=== PATIENT | female | born 1975 | race Caucasian/White ===

== ENCOUNTER 2019-07-01 23:22 | Observation (INO) | payer BC ==
--- NOTE | 2019-07-01 23:40 | ERPHSYRPT ---
- History of Present Illness Time Seen by Provider: 07/01/19 23:40 Historian: patient Exam Limitations: no limitations Physician History: 43 yo history of cholecystectomy present in the ER with chief complaint of epigastric/right upper/periumbilical area mild to moderate pain intermittently for the last 2 days until tonight at 7 PM when it became constant dull aching/ burning sharp pain without any significant aggravating or relieving factors, such as the nausea and vomiting times once. Denies any association with specific food. Patient does have a history of hiatal hernia with acid reflux and symptoms are similar to previous episode when she had flareup. She is supposed to take PPI but has not been taking regularly.. Denies any fever or chills. No chest pain palpitations or shortness of breath. Timing/Duration: today Activities at Onset: rest Quality: burning, fullness Abdominal Pain Onset Location: RUQ, epigastric, periumbilical Pain Radiation: no radiation Severity of Pain-Max: moderate Severity of Pain-Current: moderate Modifying Factors: Improves With: nothing Associated Symptoms: nausea, vomiting (x1) Allergies/Adverse Reactions: Sulfa (Sulfonamide Antibiotics) Allergy (Verified 07/01/19 23:42) sulfamethoxazole [From Bactrim] Allergy (Verified 07/01/19 23:42) trimethoprim [From Bactrim] Allergy (Verified 07/01/19 23:42) acetaminophen [From Lortab] Adverse Reaction (Mild, Verified 07/01/19 23:42) hydrocodone bitartrate [From Lortab] Adverse Reaction (Mild, Verified 07/01/19 23:42) hydromorphone HCl [From Dilaudid] Adverse Reaction (Mild, Verified 07/01/19 23: 42) morphine Adverse Reaction (Mild, Verified 07/01/19 23:42) Home Medications: Phentermine HCl [Adipex-P] 37.5 mg PO DAILY 01/12/12 [History] Furosemide 20 mg [Lasix 20 mg] 20 mg PO DAILY 07/01/19 [History] Gabapentin 600 mg PO HS 07/01/19 [History] Levothyroxine Sodium 88 mcg PO DAILY 07/01/19 [History] Potassium Chloride [Klor-Con M10] 10 tab PO DAILY 07/01/19 [History] Hx Tetanus, Diphtheria Vaccination/Date Given: Yes (UNKNOWN) Hx Influenza Vaccination/Date Given: No Hx Pneumococcal Vaccination/Date Given: No - Review of Systems Constitutional: No Symptoms Eyes: No Symptoms Ears, Nose, & Throat: No Symptoms Respiratory: No Symptoms Cardiac: No Symptoms Abdominal/Gastrointestinal: Abdominal Pain, Nausea, Vomiting, Diarrhea Musculoskeletal: No Symptoms Skin: No Symptoms Neurological: No Symptoms Psychological: No Symptoms Endocrine: No Symptoms Hematologic/Lymphatic: No Symptoms Immunological/Allergic: No Symptoms - Past Medical History Pertinent Past Medical History: Yes Neurological History: No Pertinent History ENT History: No Pertinent History Cardiac History: No Pertinent History Respiratory History: No Pertinent History Endocrine Medical History: No Pertinent History Musculoskeletal History: No Pertinent History GI Medical History: GERD History: No Pertinent History Psycho-Social History: Anxiety Female Reproductive Disorders: No Pertinent History - Past Surgical History Past Surgical History: Yes Neuro Surgical History: No Pertinent History Cardiac: No Pertinent History Respiratory: No Pertinent History Gastrointestinal: Cholecystectomy Genitourinary: No Pertinent History Musculoskeletal: No Pertinent History Female Surgical History: Section, Tubal Ligation - Social History Smoking Status: Never smoker Exposure to second hand smoke: Yes Alcohol Use: None Drug Use: none Patient Lives Alone: No Significant Family History: heart disease, hypertension - Nursing Vital Signs Nursing Vital Signs: Initial Vital Signs Temperature 97.6 F 07/01/19 23:26 Pulse Rate 86 07/01/19 23:26 Respiratory Rate 15 07/01/19 23:26 Blood Pressure 144/95 07/01/19 23:26 O2 Sat by Pulse Oximetry 98 07/01/19 23:26 Pain Scale Pain Intensity 8 - Physical Exam General Appearance: no apparent distress Eye Exam: eyes nml inspection Ears, Nose, Throat Exam: normal ENT inspection Neck Exam: normal inspection, non-tender Respiratory Exam: normal breath sounds, lungs clear, No respiratory distress Cardiovascular Exam: regular rate/rhythm, normal heart sounds Gastrointestinal/Abdomen Exam: soft, tenderness (e[pigastric/RUQ/periumbilical area), guarding, No distention Back Exam: normal inspection, normal range of motion, No CVA tenderness Extremity Exam: normal inspection Skin Exam: normal color SpO2 Interpretation: normal O2 Delivery: Room Air - Course Nursing assessment & vital signs reviewed: Yes Ordered Tests: Active Orders 24 hr Category Date Time Status Code Status Order ROUTINE Care 07/02/19 00:03 Active IV Insertion STAT Care 07/01/19 23:57 Active ABDOMEN AND PELVIS W CONTRAST [CT] Stat Exams 07/02/19 00:03 Ordered CMP Stat Lab 07/02/19 00:04 Received UA W/RFX UR CULTURE Stat Lab 07/02/19 00:48 Completed Transfer Order Routine Transfer 07/02/19 Ordered Medication Summary Discontinued Medications Generic Name Dose Route Start Last Admin Trade Name Selena PRN Reason Stop Dose Admin Al Hydrox/Mg Hydrox/Simethicone Confirm 07/02/19 00:18 Maalox Es 30 Ml Unit Dose Administered 07/02/19 00:19 Dose 30 ml .ROUTE .STK-MED ONE Sodium Chloride 1,000 mls @ 999 mls/hr 07/01/19 23:57 07/02/19 03:20 Sodium Chloride 0.9% 1000 Ml IV 07/02/19 00:57 Infused .Q1H1M STA Infusion Sodium Chloride Confirm 07/02/19 00:18 Sodium Chloride 0.9% 1000 Ml Administered 07/02/19 00:19 Dose 1,000 mls @ ud .ROUTE .STK-MED ONE Lidocaine HCl Confirm 07/02/19 00:20 Xylocaine Hcl Viscous * Administered 07/02/19 00:21 Dose 15 ml .ROUTE .STK-MED ONE Magnesium Hydroxide 45 ml 07/01/19 23:57 07/02/19 00:25 Gi Cocktail 45 Ml (Maalox/Lidocaine) PO 07/01/19 23:58 45 ml STAT ONE Administration Ondansetron HCl 4 mg 07/01/19 23:57 07/02/19 00:25 Zofran 4 Mg/2 Ml Vial IV 07/01/19 23:58 4 mg STAT ONE Administration Ondansetron HCl Confirm 07/02/19 00:18 Zofran 4 Mg/2 Ml Vial Administered 07/02/19 00:19 Dose 4 mg .ROUTE .STK-MED ONE Pantoprazole Sodium 40 mg 07/01/19 23:57 07/02/19 00:25 Protonix 40 Mg Iv IV 07/01/19 23:58 40 mg STAT ONE Administration Pantoprazole Sodium Confirm 07/02/19 00:18 Protonix 40 Mg Iv Administered 07/02/19 00:19 Dose 40 mg IV .STK-MED ONE Lab/Rad Data: Laboratory Result Diagrams 07/01/19 00:04 Laboratory Results 07/02/19 07/01/19 Range/Units 00:48 00:04 WBC 14.2 H (4.0-10.5) K/mm3 RBC 4.51 (4.1-5.4) M/mm3 Hgb 13.8 (12.0-16.0) gm/dl Hct 42.0 (35-47) % MCV 93.1 (78-100) fl MCH 30.6 (26-32) pg MCHC 32.9 (32-36) g/dl RDW 12.4 (11.5-14.0) % Plt Count 334 (150-450) K/mm3 MPV 9.9 H (6-9.5) fl Gran % 79.1 H (36.0-66.0) % Eos # (Auto) 0.14 (0-0.5) Absolute Lymphs (auto) 1.97 (1.0-4.6) Absolute Monos (auto) 0.82 (0.0-1.3) Lymphocytes % 13.9 L (24.0-44.0) % Monocytes % 5.8 (0.0-12.0) % Eosinophils % 1.0 (0.00-5.0) % Basophils % 0.2 (0.0-0.4) % Absolute Granulocytes 11.25 H (1.4-6.9) Basophils # 0.03 (0-0.4) Urine Color YELLOW (YELLOW) Urine Appearance SLIGHTLY CLOUDY (CLEAR) Urine pH 5.0 (5-6) Ur Specific [place] 1.027 (1.005-1.025) Urine Protein NEGATIVE (Negative) Urine Ketones NEGATIVE (NEGATIVE) Urine Blood NEGATIVE (0-5) Rishabh/ul Urine Nitrite NEGATIVE (NEGATIVE) Urine Bilirubin NEGATIVE (NEGATIVE) Urine Urobilinogen NEGATIVE (0-1) mg/dL Ur Leukocyte Esterase NEGATIVE (NEGATIVE) Urine WBC (Auto) 0-2 (0-5) /HPF Urine RBC (Auto) 3-5 (0-2) /HPF U Epithel Cells (Auto) RARE (FEW) /HPF Urine Bacteria (Auto) RARE (NEGATIVE) /HPF Urine Mucus (Auto) MANY (NEGATIVE) /HPF Urine Culture Reflexed NO (NO) Urine Glucose NEGATIVE (NEGATIVE) mg/dL - Progress Progress: improved, re-examined Progress Note: 43 years old is evaluated for upper abd pain and vomiting.she is given GI cocktail and protonix, on reevaluation feeling better. She still had some tenderness in the epigastric and right upper quadrant area. White count 14. Grossly unremarkable chemistries. CT showed severe right posterior hepatic lobe biliary duct dilatation leading towards right biliary duct with narrow caliber afterwards suspicious for stricture/clip dislodgment. I believe this needs further evaluation with MRCP. I have discussed with Dr. Middleton and patient is being admitted for observation. 07/02/19 03:33 Discussed with : Panfilo Will see patient in: hospital (observation) Counseled pt/family regarding: lab results, diagnosis, rad results - Departure Departure Disposition: Observation Clinical Impression: Right upper quadrant abdominal pain Condition: Stable Critical Care Time: No Referrals: [facility] [Primary Care Provider] -
[2019-07-01] MEDS ORDERED: Sodium Chloride 0.9% 1000 ML 1,000 ML IV STA (23:57)
[2019-07-01] MEDS ORDERED: GI COCKTAIL 45 ML (Maalox/Lidocaine) PO ONE (23:57)
[2019-07-01] MEDS ORDERED: Zofran 4 MG/2 ML VIAL IV ONE (23:57)
[2019-07-01] MEDS ORDERED: PROTONIX 40 MG IV IV ONE (23:57)
[2019-07-02 00:10] LABS: Absolute Neutrophil Ct (ANC) 11.25 (1.4-6.9); BASOPHIL % 0.2 % (0.0-0.4); Basophil (Absolute #) 0.03 (0-0.4); Eosinophil (Absolute #) 0.14 (0-0.5); Hemoglobin 13.8 gm/dl (12.0-16.0); Lymphocyte (Absolute #) 1.97 (1.0-4.6); Lymphocytes % 13.9 % (24.0-44.0); Mean Cell Volume 93.1 fl (78-100); Mean Corpuscular Hemoglobin 30.6 pg (26-32); Mean Corpuscular Hgb Concent. 32.9 g/dl (32-36); Mean Platelet Volume 9.9 fl (6-9.5); Monocyte (Absolute #) 0.82 (0.0-1.3); Monocytes % 5.8 % (0.0-12.0); Neutrophil % 79.1 % (36.0-66.0); Platelet Count 334 K/mm3 (150-450); Red Blood Count 4.51 M/mm3 (4.1-5.4); Red Cell Distribution Width 12.4 % (11.5-14.0); White Blood Count 14.2 K/mm3 (4.0-10.5)
[2019-07-02] MEDS ORDERED: MAALOX ES 30 ML UNIT DOSE ONE (00:18)
[2019-07-02] MEDS ORDERED: PROTONIX 40 MG IV IV ONE (00:18)
[2019-07-02] MEDS ORDERED: Zofran 4 MG/2 ML VIAL ONE (00:18)
[2019-07-02] MEDS ORDERED: Sodium Chloride 0.9% 1000 ML 0 ML ONE (00:18)
[2019-07-02] MEDS ORDERED: XYLOCAINE HCl Viscous ONE (00:20)
[2019-07-02 00:58] LABS: Appearance SLIGHTLY CLOUDY (CLEAR); Bacteria RARE /HPF (NEGATIVE); Bilirubin NEGATIVE (NEGATIVE); Blood NEGATIVE Ery/ul (0-5); Epithelial Cells RARE /HPF (FEW); Glucose NEGATIVE (NEGATIVE); Ketones NEGATIVE (NEGATIVE); Leukocyte Esterase NEGATIVE (NEGATIVE); Mucus MANY /HPF (NEGATIVE); Nitrite NEGATIVE (NEGATIVE); Protein,Urine Dip NEGATIVE (Negative); Specific Gravity 1.027 (1.005-1.025); Urobilinogen NEGATIVE mg/dL (0-1); WBC 0-2 /HPF (0-5)
[2019-07-02] MEDS ORDERED: Zofran 4 MG/2 ML VIAL IV PRN (04:05)
[2019-07-02] MEDS ORDERED: Sodium Chloride 0.9% 1000 ML 1,000 ML ONE (04:07)
[2019-07-02] MEDS: Sodium Chloride 0.9% W/ 20 mEq KCl/LITER 1,000 ML IV SCH (04:26)
--- NOTE | 2019-07-02 08:54 | XRAY ---
Indication: Abdomen pain, nausea, vomiting, and elevated WBC. Pancreatitis. Multiple contiguous axial images obtained through the abdomen and pelvis using 80 cc Isovue 370 contrast only. Comparison: None Lung bases demonstrate left lower lobe calcified granuloma. No infiltrate or effusion. Heart is not enlarged. Noncontrasted stomach and bowel loops appear nonobstructed. Normal appendix. Previous cholecystectomy. Right lobe of the liver demonstrates marked abnormal biliary dilatation up to 2.4 cm. Transition point seen site of cholecystectomy clip suggesting stricture/obstruction. Common bile duct normal in course and caliber. No free fluid/air. Left knee kidney demonstrates 2.9 cm cyst. There are tiny left mid abdomen mesenteric nodes with minimal stranding, possible adenitis. Remaining liver, pancreas, spleen, adrenal glands, kidneys, ureters, bladder, uterus, and aorta appear unremarkable. No pathologic retroperitoneal lymphadenopathy. Osseous structures intact. Impression: 1. Markedly abnormal dilated right biliary tree with transition point at site of cholecystectomy clip. 2. Tiny mesenteric lymph nodes with minimal stranding favoring adenitis. 3. Incidental left renal cyst and evidence for old granulomatous disease. Comment: Preliminary interpretation was made by C. No critical discrepancy. CTDI 16.80
[2019-07-02] MEDS ORDERED: MEDICATION INTERVENTION PO SCH (09:30)
[2019-07-02] MEDS: ROCEPHIN 1 Gm-D5w 50 ml Bag** 1 G/50 ML IVPB IV SCH ×2 (09:43→21:25)
[2019-07-02] MEDS: PROTONIX 40 MG IV IV SCH ×2 (09:50→10:16)
[2019-07-02] MEDS: CLARITIN 10 MG PO SCH (09:54)
[2019-07-02] MEDS: Klor Con 10 MEQ PO SCH (09:54)
[2019-07-02] MEDS: TYLENOL EXTRA STRENGTH 500 MG PO PRN ×2 (09:54→16:58)
[2019-07-02] MEDS: SYNTHROID 88 MCG PO SCH (09:56)
[2019-07-02] MEDS: LASIX 20 MG PO SCH (09:59)
[2019-07-02] MEDS ORDERED: NON-FORMULARY ITEM (Omeprazole 20 Mg [Prilosec 20 Mg] 20 MG) PO SCH (10:00)
[2019-07-02] MEDS ORDERED: BIOTIN 5 MG PO SCH (10:00)
[2019-07-02] MEDS ORDERED: POTASSIUM CHLORIDE PO SCH (10:00)
[2019-07-02] MEDS ORDERED: NON-FORMULARY ITEM (Cetirizine Hcl [Zyrtec] 10 MG) PO SCH (10:00)
[2019-07-02] MEDS ORDERED: Protonix 40MG Tablet PO SCH (10:00)
--- NOTE | 2019-07-02 10:04 | XRAY ---
Indication: Right upper quadrant pain and vomiting. Cholecystectomy 2000. Conventional MRCP was performed. Comparison: None Gallbladder surgically absent. Right lobe of the liver demonstrates marked abnormal biliary tree dilatation up to 1.9 cm in diameter with focal tapering/transition point in the gilda hepatis suggesting stricture. No filling defect or choledochal calculus. Common bile duct and pancreatic duct appear normal. Normal emptying into the second portion of the duodenum. No focal solid/cystic liver mass or ascites. Left kidney demonstrates 2.4 cm and 7 mm mid pole cortical cysts. Remaining visualized spleen, pancreas, adrenal glands, and right kidney appear unremarkable. Stomach and visualized bowel loops appear nonobstructed. No abnormal bone marrow signal. Impression: 1. Cholecystectomy with abnormal dilated right biliary tree with transition point in the gilda hepatis favoring ductal stricture. No filling defect or choledochal calculus. 2. Incidental left renal cortical cysts.
--- NOTE | 2019-07-02 20:21 | PCM.SSS ---
History of Present Illness - Chief Complaint Chief Complaint: Right Upper Abdominal Pain History of Present Illness: is a 43 year old female who presented to ER with severe epigastric pain that radiated to RUQ.The pain started about 3 hours after eating Tish cheese steak sandwich. States the pain hit suddenly ,felt nauseated and vomited large volume of undigested food.The pain continued even after vomiting. Pain was episodic for about a week and releived with generic Prilosec.States a similar episode a year ago and IV Protonix releived the pain and was told it was due to HH. No Hx PUD. Hx Cholecystectomy 2000 gallstones, No Hx ETOH use or pancreatitis or ulcers. Patient had a Colonoscopy [address] Goodson [place] because her mother from Colon cancer at age 42 yrs old. States colon was "clean".Her father PA age early 50s. - Review of Systems Constitutional: Fatigue (for a week and a half ,sleepy), Weight Loss (on Adipex 13 # on a diet low fat and reduced carb diet.) Eyes: No Symptoms Ears, Nose, & Throat: No Symptoms Respiratory: No Cough, No Short Of Breath Cardiac: Edema (takes Lasix plus potassium on days that she is up on feet all day and legs swell), Other (states some heart palitations past week and epigastric pain-episodic), No Chest Pain, No Syncope Abdominal/Gastrointestinal: Abdominal Pain, Nausea, Vomiting, Constipation ( normal BM yesterday morning) Genitourinary Symptoms: No Dysuria Musculoskeletal: Back Pain (Lumbar DDD with pain into left leg started on Gabapentin 1 month ago with releif), No Neck Pain Skin: No Rash Neurological: Headache (if misses meals or with sleep deprivation) Psychological: No Symptoms Endocrine: No Symptoms, Other (is on Synthroid for hypothyroid ) Hematologic/Lymphatic: No Symptoms Immunological/Allergic: Other (seasonal allergies) Medications & Allergies Home Medications: Home Medication List Phentermine HCl [Adipex-P] 37.5 mg PO DAILY 01/12/12 [History Confirmed 07/02/19 ] Omeprazole 20 MG [Prilosec 20 mg] 20 mg PO DAILY #30 capsule. 04/21/12 [Rx Confirmed 07/02/19] Furosemide 20 mg [Lasix 20 mg] 20 mg PO DAILY 07/01/19 [History Confirmed 07/01/19] Gabapentin 600 mg PO HS 07/01/19 [History Confirmed 07/01/19] Levothyroxine Sodium 88 mcg PO DAILY 07/01/19 [History Confirmed 07/01/19] Potassium Chloride [Klor-Con M10] 10 tab PO DAILY 07/01/19 [History Confirmed ] Biotin 5 mg PO DAILY 07/02/19 [History Confirmed 07/02/19] Cetirizine HCl [Zyrtec] 10 mg PO DAILY 07/02/19 [History Confirmed 07/02/19] Cefdinir [Omnicef] 300 mg PO BID #20 capsule 07/03/19 [Rx] Allergies/Adverse Reactions: Allergies Allergy/AdvReac Type Severity Reaction Status Date / Time Sulfa (Sulfonamide Allergy Verified 07/01/19 23:42 Antibiotics) sulfamethoxazole Allergy Verified 07/01/19 23:42 [From Bactrim] trimethoprim [From Bactrim] Allergy Verified 07/01/19 23:42 acetaminophen [From Lortab] AdvReac Mild Verified 07/01/19 23:42 hydrocodone bitartrate AdvReac Mild Verified 07/01/19 23:42 [From Lortab] hydromorphone HCl AdvReac Mild Verified 07/01/19 23:42 [From Dilaudid] morphine AdvReac Mild Verified 07/01/19 23:42 codeine AdvReac Verified 07/02/19 04:06 - Past Medical History Past Medical History: Yes Neurological History: No Pertinent History, Migraines (rarely) ENT History: No Pertinent History Cardiac History: No Pertinent History CARDIAC HISTORY: No Pertinent History Respiratory History: No Pertinent History Endocrine Medical History: Hypothyroidism Musculoskelatal History: Arthritis GI Medical History: GERD (Hiatal Hernia) History: No Pertinent History Pyscho-Social History: Anxiety Reproductive Disorders: No Pertinent History - Female History Are you now?: No - Past Surgical History Past Surgical History: Yes Neuro Surgical History: No Pertinent History Cardiac History: No Pertinent History Respiratory Surgery: No Pertinent History GI Surgical History: Cholecystectomy Genitourinary Surgical Hx: No Pertinent History Musculskeletal Surgical Hx: No Pertinent History Female Surgical History: Section, Tubal Ligation - Social History Smoking Status: Former smoker Exposure to second hand smoke: No Alcohol: None Drug Use: none Significant Family History: heart disease, hypertension - Physical Exam Vital Signs: Vital Signs - 24 hr Temp Pulse Resp BP Pulse Ox 07/02/19 19:34 98.4 F 65 18 114/68 96 07/02/19 16:00 98.6 F 70 18 123/70 99 07/02/19 12:00 99.6 F 71 16 102/54 97 07/02/19 07:52 98.2 F 69 16 107/54 97 07/02/19 04:48 97.6 F 92 H 16 121/65 97 07/02/19 03:18 87 109/69 98 07/02/19 02:23 74 112/73 97 07/02/19 01:16 71 128/74 100 07/02/19 00:43 84 121/73 97 07/01/19 23:26 97.6 F 86 15 144/95 98 General Appearance: no apparent distress Neurologic Exam: alert, oriented x 3, cooperative, auto roller II-XII nml as tested, normal mood/affect Eye Exam: PERRL/EOMI, eyes nml inspection (nonicteric) Ears, Nose, Throat Exam: normal ENT inspection Neck Exam: normal inspection Respiratory Exam: normal breath sounds, lungs clear Cardiovascular Exam: regular rate/rhythm Gastrointestinal/Abdomen Exam: soft, normal bowel sounds, tenderness ( epigastrum and RUQ,no guarding ,no rebound) Pelvic Exam: not done Rectal Exam: not done Extremity Exam: normal inspection, normal range of motion, other (no pitting edema) Skin Exam: normal color, warm, dry Results - Labs Lab/Micro Results: Lab Results-Last 24 Hours 07/01/19 07/01/19 07/02/19 Range/Units 00:04 00:04 00:04 WBC 14.2 H (4.0-10.5) K/mm3 RBC 4.51 (4.1-5.4) M/mm3 Hgb 13.8 (12.0-16.0) gm/dl Hct 42.0 (35-47) % MCV 93.1 (78-100) fl MCH 30.6 (26-32) pg MCHC 32.9 (32-36) g/dl RDW 12.4 (11.5-14.0) % Plt Count 334 (150-450) K/mm3 MPV 9.9 H (6-9.5) fl Gran % 79.1 H (36.0-66.0) % Eos # (Auto) 0.14 (0-0.5) Absolute Lymphs (auto) 1.97 (1.0-4.6) Absolute Monos (auto) 0.82 (0.0-1.3) Lymphocytes % 13.9 L (24.0-44.0) % Monocytes % 5.8 (0.0-12.0) % Eosinophils % 1.0 (0.00-5.0) % Basophils % 0.2 (0.0-0.4) % Absolute Granulocytes 11.25 H (1.4-6.9) Basophils # 0.03 (0-0.4) Glucose POMOLOGIST Amylase POMOLOGIST Urine Color (YELLOW) Urine Appearance (CLEAR) Urine pH (5-6) Ur Specific [place] (1.005-1.025) Urine Protein (Negative) Urine Ketones (NEGATIVE) Urine Blood (0-5) Rishabh/ul Urine Nitrite (NEGATIVE) Urine Bilirubin (NEGATIVE) Urine Urobilinogen (0-1) mg/dL Ur Leukocyte Esterase (NEGATIVE) Urine WBC (Auto) (0-5) /HPF Urine RBC (Auto) (0-2) /HPF U Epithel Cells (Auto) (FEW) /HPF Urine Bacteria (Auto) (NEGATIVE) /HPF Urine Mucus (Auto) (NEGATIVE) /HPF Urine Culture Reflexed (NO) Urine Glucose (NEGATIVE) mg/dL 07/02/19 Range/Units 00:48 WBC (4.0-10.5) K/mm3 RBC (4.1-5.4) M/mm3 Hgb (12.0-16.0) gm/dl Hct (35-47) % MCV (78-100) fl MCH (26-32) pg MCHC (32-36) g/dl RDW (11.5-14.0) % Plt Count (150-450) K/mm3 MPV (6-9.5) fl Gran % (36.0-66.0) % Eos # (Auto) (0-0.5) Absolute Lymphs (auto) (1.0-4.6) Absolute Monos (auto) (0.0-1.3) Lymphocytes % (24.0-44.0) % Monocytes % (0.0-12.0) % Eosinophils % (0.00-5.0) % Basophils % (0.0-0.4) % Absolute Granulocytes (1.4-6.9) Basophils # (0-0.4) Glucose Amylase Urine Color YELLOW (YELLOW) Urine Appearance SLIGHTLY CLOUDY (CLEAR) Urine pH 5.0 (5-6) Ur Specific [place] 1.027 (1.005-1.025) Urine Protein NEGATIVE (Negative) Urine Ketones NEGATIVE (NEGATIVE) Urine Blood NEGATIVE (0-5) Rishabh/ul Urine Nitrite NEGATIVE (NEGATIVE) Urine Bilirubin NEGATIVE (NEGATIVE) Urine Urobilinogen NEGATIVE (0-1) mg/dL Ur Leukocyte Esterase NEGATIVE (NEGATIVE) Urine WBC (Auto) 0-2 (0-5) /HPF Urine RBC (Auto) 3-5 (0-2) /HPF U Epithel Cells (Auto) RARE (FEW) /HPF Urine Bacteria (Auto) RARE (NEGATIVE) /HPF Urine Mucus (Auto) MANY (NEGATIVE) /HPF Urine Culture Reflexed NO (NO) Urine Glucose NEGATIVE (NEGATIVE) mg/dL - Radiology Impressions Radiology Exams & Impressions: Radiology Procedures Category Date Time Status ABDOMEN AND PELVIS W CONTRAST [CT] Stat Exams 07/02/19 00:03 Completed MRI ABD W/O CONTRAST [MRI] Routine Exams 07/02/19 07:23 Completed Assessment/Plan (1) Right upper quadrant abdominal pain Status: Acute Code(s): R10.11 - RIGHT UPPER QUADRANT PAIN (2) Leukocytosis Status: Acute Code(s): D72.829 - ELEVATED WHITE BLOOD CELL COUNT, UNSPECIFIED (3) Hx laparoscopic cholecystectomy Status: Resolved Assessment & Plan: remote for gall stones- 2000 Code(s): Z90.49 - ACQUIRED ABSENCE OF OTHER SPECIFIED PARTS OF DIGESTIVE TRACT (4) Obstruction of biliary tree Status: Acute Hospital Summary - Hospital Course Hospital Course: Patient was admitted through ER with severe RUQ pain,N/V. She is S/P cholecystectomy (gallstones) in 2000.CT abd showed right posterior hepatic biliary tree dilation. MRI of biliary tree showed right biliary tree dilation favoring [place]al [place] [address] on admission and Rocephin IV 1gram q 12h was given and at discharge WBC was 5300.LIver enzymes were very mildy elevated and biliruben was normal.Surgery consult (phone consult ) advised ERCP . Her pain in upper abdomen improved to mild tenderness and she tolerated a regular diet .She will see GI for further work up.I also recommend Cardiac work up in light of her family Hx - Vitals & Intake/Output Vital Signs: Vital Signs Temperature 98.4 F 07/02/19 19:34 Pulse Rate 65 07/02/19 19:34 Respiratory Rate 18 07/02/19 19:34 Blood Pressure 114/68 07/02/19 19:34 O2 Sat by Pulse Oximetry 96 07/02/19 19:34 Intake & Output: Intake & Output 06/30/19 07/01/19 07/02/19 07/03/19 11:59 11:59 11:59 11:59 Intake Total 0 1028 Output Total 350 1000 Balance -350 28 Weight 93.1 kg - Lab Result Diagrams: 07/02/19 20:50 07/02/19 20:50 Lab Results-Last 24 Hrs: Lab Results-Last 24 Hours 07/01/19 07/01/19 07/02/19 Range/Units 00:04 00:04 00:04 WBC 14.2 H (4.0-10.5) K/mm3 RBC 4.51 (4.1-5.4) M/mm3 Hgb 13.8 (12.0-16.0) gm/dl Hct 42.0 (35-47) % MCV 93.1 (78-100) fl MCH 30.6 (26-32) pg MCHC 32.9 (32-36) g/dl RDW 12.4 (11.5-14.0) % Plt Count 334 (150-450) K/mm3 MPV 9.9 H (6-9.5) fl Gran % 79.1 H (36.0-66.0) % Eos # (Auto) 0.14 (0-0.5) Absolute Lymphs (auto) 1.97 (1.0-4.6) Absolute Monos (auto) 0.82 (0.0-1.3) Lymphocytes % 13.9 L (24.0-44.0) % Monocytes % 5.8 (0.0-12.0) % Eosinophils % 1.0 (0.00-5.0) % Basophils % 0.2 (0.0-0.4) % Absolute Granulocytes 11.25 H (1.4-6.9) Basophils # 0.03 (0-0.4) Glucose POMOLOGIST Amylase POMOLOGIST Urine Color (YELLOW) Urine Appearance (CLEAR) Urine pH (5-6) Ur Specific [place] (1.005-1.025) Urine Protein (Negative) Urine Ketones (NEGATIVE) Urine Blood (0-5) Rishabh/ul Urine Nitrite (NEGATIVE) Urine Bilirubin (NEGATIVE) Urine Urobilinogen (0-1) mg/dL Ur Leukocyte Esterase (NEGATIVE) Urine WBC (Auto) (0-5) /HPF Urine RBC (Auto) (0-2) /HPF U Epithel Cells (Auto) (FEW) /HPF Urine Bacteria (Auto) (NEGATIVE) /HPF Urine Mucus (Auto) (NEGATIVE) /HPF Urine Culture Reflexed (NO) Urine Glucose (NEGATIVE) mg/dL 07/02/19 Range/Units 00:48 WBC (4.0-10.5) K/mm3 RBC (4.1-5.4) M/mm3 Hgb (12.0-16.0) gm/dl Hct (35-47) % MCV (78-100) fl MCH (26-32) pg MCHC (32-36) g/dl RDW (11.5-14.0) % Plt Count (150-450) K/mm3 MPV (6-9.5) fl Gran % (36.0-66.0) % Eos # (Auto) (0-0.5) Absolute Lymphs (auto) (1.0-4.6) Absolute Monos (auto) (0.0-1.3) Lymphocytes % (24.0-44.0) % Monocytes % (0.0-12.0) % Eosinophils % (0.00-5.0) % Basophils % (0.0-0.4) % Absolute Granulocytes (1.4-6.9) Basophils # (0-0.4) Glucose Amylase Urine Color YELLOW (YELLOW) Urine Appearance SLIGHTLY CLOUDY (CLEAR) Urine pH 5.0 (5-6) Ur Specific [place] 1.027 (1.005-1.025) Urine Protein NEGATIVE (Negative) Urine Ketones NEGATIVE (NEGATIVE) Urine Blood NEGATIVE (0-5) Rishabh/ul Urine Nitrite NEGATIVE (NEGATIVE) Urine Bilirubin NEGATIVE (NEGATIVE) Urine Urobilinogen NEGATIVE (0-1) mg/dL Ur Leukocyte Esterase NEGATIVE (NEGATIVE) Urine WBC (Auto) 0-2 (0-5) /HPF Urine RBC (Auto) 3-5 (0-2) /HPF U Epithel Cells (Auto) RARE (FEW) /HPF Urine Bacteria (Auto) RARE (NEGATIVE) /HPF Urine Mucus (Auto) MANY (NEGATIVE) /HPF Urine Culture Reflexed NO (NO) Urine Glucose NEGATIVE (NEGATIVE) mg/dL - Radiology Exams Ordered Rad Exams-Entire Visit: Radiology Procedures Category Date Time Status ABDOMEN AND PELVIS W CONTRAST [CT] Stat Exams 07/02/19 00:03 Completed MRI ABD W/O CONTRAST [MRI] Routine Exams 07/02/19 07:23 Completed - Discharge Disposition: Home, Self-Care Condition: Stable Prescriptions: New Cefdinir [Omnicef] 300 mg PO BID #20 capsule Continue Phentermine HCl [Adipex-P] 37.5 mg PO DAILY Omeprazole 20 MG [Prilosec 20 mg] 20 mg PO DAILY #30 capsule. Potassium Chloride [Klor-Con M10] 10 tab PO DAILY Levothyroxine Sodium 88 mcg PO DAILY Gabapentin 600 mg PO HS Furosemide 20 mg [Lasix 20 mg] 20 mg PO DAILY Biotin 5 mg PO DAILY Cetirizine HCl [Zyrtec] 10 mg PO DAILY Instructions: Endoscopic Retrograde Cholangiopancreatography Follow up with: NORM KELLER [COURTESY STAFF] - 07/05/19 9:40 am DANNI ZAMBRANO MD [NON-STAFF PHY W/O PRIVILEGES] - 07/18/19 2:30 pm
[2019-07-02 21:04] LABS: Absolute Neutrophil Ct (ANC) 2.68 (1.4-6.9); BASOPHIL % 0.4 % (0.0-0.4); Basophil (Absolute #) 0.02 (0-0.4); Eosinophil % 2.3 % (0.00-5.0); Eosinophil (Absolute #) 0.12 (0-0.5); Hemoglobin 11.9 gm/dl (12.0-16.0); Lymphocyte (Absolute #) 2.16 (1.0-4.6); Lymphocytes % 40.7 % (24.0-44.0); Mean Cell Volume 93.2 fl (78-100); Mean Corpuscular Hgb Concent. 32.2 g/dl (32-36); Mean Platelet Volume 9.6 fl (6-9.5); Monocyte (Absolute #) 0.33 (0.0-1.3); Monocytes % 6.2 % (0.0-12.0); Neutrophil % 50.4 % (36.0-66.0); Platelet Count 273 K/mm3 (150-450); Red Blood Count 3.97 M/mm3 (4.1-5.4); White Blood Count 5.3 K/mm3 (4.0-10.5)
[2019-07-02 21:16] LABS: ALBUMIN 3.8 g/dL (3.5-5.0); ALKALINE PHOSPHATASE 117 U/L (38-126); AMYLASE 39 U/L (30-110); ANION GAP 11.8 MEQ/L (5-15); BLOOD UREA NITROGEN 6 mg/dL (7-17); CHLORIDE 110 mmol/L (98-107); Calcium 8.8 mg/dL (8.4-10.2); Carbon Dioxide 25 mmol/L (22-30); Creatinine 1 0.58 mg/dL (0.52-1.04); Glucose 89 mg/dL (74-106); Potassium 3.8 mmol/L (3.5-5.1); SGOT/AST 35 U/L (14-36); SGPT/ALT 30 U/L (0-35); SODIUM 144 mmol/L (137-145); Total Protein 7.2 g/dL (6.3-8.2)
[2019-07-02 21:24] LABS: Mean Corpuscular Hemoglobin 29.9 pg (26-32)
[2019-07-02] MEDS ORDERED: NEURONTIN 300 MG PO SCH (22:00)
[2019-07-03] MEDS: Sodium Chloride 0.9% W/ 20 mEq KCl/LITER 1,000 ML IV SCH (04:11)
[2019-07-03] MEDS: TYLENOL EXTRA STRENGTH 500 MG PO PRN (04:28)
[2019-07-03 07:03] VITALS: BP 95/55; PULSE 57; O2SAT 98
[2019-07-03] MEDS: ROCEPHIN 1 Gm-D5w 50 ml Bag** 1 G/50 ML IVPB IV SCH (09:25)
[2019-07-03] MEDS: PROTONIX 40 MG IV IV SCH (09:27)
[2019-07-03] MEDS: Klor Con 10 MEQ PO SCH (09:31)
[2019-07-03] MEDS: CLARITIN 10 MG PO SCH (09:32)
[2019-07-03] MEDS: LASIX 20 MG PO SCH (09:32)
[2019-07-03] MEDS: SYNTHROID 88 MCG PO SCH (09:44)
== END 2019-07-03 11:15 | disposition home or self-care (01) ==
LOC: ED 23:22 → MED SURG 07-02 04:01
PROVIDERS: ADMIT Family Medicine; ATTEND Family Medicine
DX: R10.11 Right upper quadrant pain (principal); K83.1 Obstruction of bile duct; R51 Headache; R11.2 Nausea with vomiting, unspecified; E03.9 Hypothyroidism, unspecified; K21.9 Gastro-esophageal reflux disease without esophagitis; D72.829 Elevated white blood cell count, unspecified; R53.83 Other fatigue; Z80.0 Family history of malignant neoplasm of digestive organs; Z79.899 Other long term (current) drug therapy
CPT/HCPCS: 36000; 36415; 74177; 74181; 80053; 81001; 82150; 83690; 84484; 85025; 93005; 96360; 96374; 99285; G0378; J0696; J2405; A9270-GY